=== PATIENT | male | born 1950 | race Caucasian/White ===

== ENCOUNTER 2018-11-30 16:41 | Emergency (ER) | payer BC, MEDICARE ==
[2018-11-30 17:07] VITALS: BP 156/93
--- NOTE | 2018-11-30 18:05 | EDM.PDOC ---
ED HPI GENERAL MEDICAL PROBLEM - General Chief Complaint: Abdominal Pain Stated Complaint: UPSET STOMACH,DIZZY Time Seen by Provider: 11/30/18 16:45 Source of Information: Reports: Patient History Limitations: Reports: No Limitations - History of Present Illness INITIAL COMMENTS - FREE TEXT/NARRATIVE: Patient time seen is inaccurate due to chart issues. Actual time see was 17:45. Zelalem Ayala is a 68 year old female who reports to the ED with concerns of dizziness and abdominal discomfort. 3 hours after snow blowing he was inside and kneeled down then felt dizzy. He then sat down for awhile due to the dizziness. He states that his vision felt blurry and he had a room spinning sensation. When walking in the ER he felt dizzy also. Then one hour after that he felt he had abdominal discomfort, bloating and increased belching. He denies eating anything out of the ordinary. He denies n/v/d and constipation. Last BM was about 1 hour ago and was normal. He did note that he has been using tea tree oil on his eyes and one side effect is dizziness. Further symptoms are denied at this time. - Related Data Allergies Allergy/AdvReac Type Severity Reaction Status Date / Time No Known Allergies Allergy Verified 11/30/18 17:13 Home Meds: Home Meds [place]-3 Fatty Acids [Fish Oil] 1,000 tab PO BID 08/16/14 [History] Cholecalciferol (Vitamin D3) [Vitamin D3] 2,000 unit PO DAILY 10/05/14 [History] Acetaminophen [Acetaminophen Extra Strength] 500 mg PO Q4HR PRN 10/09/15 [ History] Pantoprazole Sodium [Protonix] 40 mg PO BID 10/09/15 [History] Mv-Mn/FA/Vit K/Lycop/Lut/Zeaxa [Ocuvite Eye + Multi Tablet] 1 each PO DAILY [History] atorvaSTATin [Lipitor] 10 mg PO BEDTIME 10/11/15 [History] Past Medical History HEENT History: Reports: Impaired Vision, Macular Degeneration, Other (See Below) Other HEENT History: "ringing in the ears" Cardiovascular History: Reports: High Cholesterol Gastrointestinal History: Reports: Other (See Below) Other Gastrointestinal History: "bleeding ulcer" Hematologic History: Reports: Blood Transfusion(s) - Infectious Disease History Infectious Disease History: Reports: Chicken Pox, Measles, Mumps - Past Surgical History Head Surgeries/Procedures: Reports: None HEENT Surgical History: Reports: Tonsillectomy Cardiovascular Surgical History: Reports: None GI Surgical History: Reports: Colonoscopy, EGD, Hernia Repair/Other Dermatological Surgical History: Reports: None Social & Family History - Tobacco Use Smoking Status *Q: Former Smoker Used Tobacco, but Quit: Yes Month/Year Tobacco Last Used: 1968 - Caffeine Use Caffeine Use: Reports: Coffee - Recreational Drug Use Recreational Drug Use: No ED ROS GENERAL - Review of Systems Review Of Systems: See Below Constitutional: Denies: Fever, Chills, Malaise, Weakness Respiratory: Reports: No Symptoms Cardiovascular: Reports: No Symptoms Endocrine: Reports: No Symptoms GI/Abdominal: Reports: Distension. Denies: Black Stool, Bloody Stool, Constipation, Diarrhea, Decreased Appetite, Nausea, Stool Incontinence, Vomiting : Reports: No Symptoms Musculoskeletal: Reports: No Symptoms Skin: Reports: No Symptoms Neurological: Reports: Dizziness Psychiatric: Reports: No Symptoms ED EXAM, GI/ABD - Physical Exam Exam: See Below Exam Limited By: No Limitations General Appearance: Alert, WD/WN, No Apparent Distress Ears: Normal External Exam, Hearing Grossly Normal, Other (Cerumen impaction of right ear) Throat/Mouth: Normal Inspection, Normal Lips, Normal Teeth, Normal Gums, Normal Oropharynx Head: Atraumatic, Normocephalic Neck: Normal Inspection, Supple, Non-Tender Respiratory/Chest: No Respiratory Distress, Lungs Clear, Normal Breath Sounds, No Accessory Muscle Use Cardiovascular: Normal Peripheral Pulses, Regular Rate, Rhythm, No Edema GI/Abdominal Exam: Normal Bowel Sounds, Soft, Non-Tender, Other (diaplaced xyphoid process, chronic condition, 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) Extremities: Normal Inspection Neurological: Alert, Oriented, CN II-XII Intact, Normal Cognition, No Motor/ Sensory Deficits Psychiatric: Normal Affect, Normal Mood Skin Exam: Warm, Intact, Normal Color, No Rash Course - Vital Signs Last Recorded V/S: Last Vital Signs Temp 36.4 C 11/30/18 17:06 Pulse 72 11/30/18 17:06 Resp 16 11/30/18 17:06 BP 156/93 H 11/30/18 17:06 Pulse Ox 98 11/30/18 17:06 - Orders/Labs/Meds Labs: Laboratory Tests 11/30/18 11/30/18 Range/Units 18:11 18:11 WBC 6.2 (4.5-11.0) K/uL RBC 4.89 (4.30-5.90) M/uL Hgb 14.9 D (12.0-15.0) g/dL Hct 42.2 (40.0-54.0) % MCV 86 (80-98) fL MCH 31 (27-31) pg MCHC 35 (32-36) % Plt Count 165 (150-400) K/uL Neut % (Auto) 74 H (36-66) % Lymph % (Auto) 15 L (24-44) % [place] % (Auto) 9 H (2-6) % Eos % (Auto) 2 (2-4) % Baso % (Auto) 0 (0-1) % Sodium 137 L (140-148) mmol/L Potassium 3.9 (3.6-5.2) mmol/L Chloride 102 (100-108) mmol/L Carbon Dioxide 29 (21-32) mmol/L Anion Gap 9.9 (5.0-14.0) mmol/L BUN 17 D (7-18) mg/dL Creatinine 0.9 (0.8-1.3) mg/dL Est Cr Clr Drug Dosing 78.86 mL/min Estimated GFR (MDRD) > 60 (>60) Glucose 105 (74-106) mg/dL Calcium 9.0 D (8.5-10.1) mg/dL Departure - Departure Time of Disposition: 18:52 Disposition: Home, Self-Care 01 Condition: Fair Clinical Impression: Near syncope - Discharge Information *PRESCRIPTION DRUG MONITORING PROGRAM REVIEWED*: No *COPY OF PRESCRIPTION DRUG MONITORING REPORT IN PATIENT AMBER: No Instructions: Near-Syncope, [id number] Referrals: PCP,None [Primary Care Provider] - Forms: ED Department Discharge Additional Instructions: Use tea tree oil with caution Continue to monitor symptoms Advised to follow up with primary care provider or return to the ER is symptoms worsen or fail to improve
== END 2018-11-30 19:08 | disposition home or self-care (01) ==
LOC: JP.ED 16:41
DX: R55 Syncope and collapse (principal); E78.00 Pure hypercholesterolemia, unspecified; Z87.891 Personal history of nicotine dependence; Z79.899 Other long term (current) drug therapy
CPT/HCPCS: 36415; 80048; 85025; 99284

== ENCOUNTER 2021-01-11 17:23 | Inpatient (IN) | payer MEDICARE ==
[2021-01-11] MEDS ORDERED: Sodium Chloride 0.9% 10 ML Syringe FLUSH PRN (18:00)
--- NOTE | 2021-01-11 18:10 | EDM.PDOC ---
ED HPI GENERAL MEDICAL PROBLEM - General Chief Complaint: Gastrointestinal Problem Stated Complaint: STOMACH BLEEDING? Time Seen by Provider: 01/11/21 17:58 Source of Information: Reports: Patient History Limitations: Reports: No Limitations - History of Present Illness INITIAL COMMENTS - FREE TEXT/NARRATIVE: Zelalem is a 70-year-old male presenting to the ED for evaluation of possible upper GI bleeding. Patient was in his usual state of health until 3 days ago when he started develop some neck pain. He has been taking aspirin to treat the neck pain but today started developing nondescript upper abdominal pain and then this evening started to experience melena with black tarry stools x2. Patient has a history significant for an arterial upper GI bleed in 2013. The patient reports that today became a little bit more fatigued and was experiencing exertional dyspnea and tachycardia. This prompted him to come in for evaluation. - Related Data Allergies Allergy/AdvReac Type Severity Reaction Status Date / Time No Known Allergies Allergy Verified 01/11/21 17:44 Home Meds: Home Meds [place]-3 Fatty Acids [Fish Oil] 1,000 tab PO BID 08/16/14 [History] Cholecalciferol (Vitamin D3) [Vitamin D3] 2,000 unit PO DAILY 10/05/14 [History] atorvaSTATin [Lipitor] 5 mg PO BEDTIME 10/11/15 [History] Past Medical History HEENT History: Reports: Impaired Vision, Macular Degeneration, Other (See Below) Other HEENT History: "ringing in the ears" Cardiovascular History: Reports: High Cholesterol Gastrointestinal History: Reports: Other (See Below) Other Gastrointestinal History: "bleeding ulcer" Hematologic History: Reports: Blood Transfusion(s) - Infectious Disease History Infectious Disease History: Reports: Chicken Pox, Measles, Mumps - Past Surgical History Head Surgeries/Procedures: Reports: None HEENT Surgical History: Reports: Tonsillectomy Cardiovascular Surgical History: Reports: None GI Surgical History: Reports: Colonoscopy, EGD, Hernia Repair/Other Dermatological Surgical History: Reports: None Social & Family History - Tobacco Use Tobacco Use Status *Q: Never Tobacco User - Caffeine Use Caffeine Use: Reports: Coffee ED ROS GENERAL - Review of Systems Review Of Systems: See Below Constitutional: Reports: Fatigue HEENT: Reports: No Symptoms Respiratory: Reports: No Symptoms Cardiovascular: Reports: Dyspnea on Exertion, Palpitations Endocrine: Reports: Fatigue GI/Abdominal: Reports: Abdominal Pain (Dull upper abdominal pain), Melena : Reports: No Symptoms Musculoskeletal: Reports: No Symptoms Skin: Reports: No Symptoms Neurological: Reports: No Symptoms Psychiatric: Reports: No Symptoms Hematologic/Lymphatic: Reports: No Symptoms Immunologic: Reports: No Symptoms ED EXAM, GI/ABD - Physical Exam Exam: See Below Exam Limited By: No Limitations General Appearance: Alert, No Apparent Distress Eyes: Bilateral: EOMI Throat/Mouth: Normal Inspection, Normal Lips, Normal Teeth, Normal Gums, Normal Oropharynx, Normal Voice, No Airway Compromise Head: Atraumatic, Normocephalic Neck: Normal Inspection, Supple Respiratory/Chest: No Respiratory Distress, Lungs Clear, Normal Breath Sounds Cardiovascular: Normal Peripheral Pulses, Regular Rate, Rhythm, No Edema, No Murmur GI/Abdominal Exam: Normal Bowel Sounds, Soft, Non-Tender, No Distention, No Abnormal Bruit. No: Guarding, Rigid, Rebound Back Exam: Normal Inspection Extremities: Normal Inspection, Normal Range of Motion Neurological: Alert, Oriented, Normal Cognition, No Motor/Sensory Deficits Psychiatric: Normal Affect Skin Exam: Warm, Dry, Intact, Normal Color. No: Pallor Lymphatic: No Adenopathy Course - Vital Signs Last Recorded V/S: Last Vital Signs Temp 36.6 C 01/11/21 17:52 Pulse 100 01/11/21 17:52 Resp 16 01/11/21 17:52 BP 153/98 H 01/11/21 17:52 Pulse Ox 99 01/11/21 17:52 - Orders/Labs/Meds Orders: Active Orders 24 hr Category Date Time Status COMPREHENSIVE METABOLIC PN,CMP [CHEM] Stat Lab 01/11/21 18:00 Ordered COVID-19/FLU A+B/RSV [MOLEC] Stat Lab 01/11/21 18:05 Received INR,PT,PROTHROMBIN TIME [COAG] Stat Lab 01/11/21 18:15 Received PTT,PARTIAL THROMBOPLSTIN TIME [COAG] Stat Lab 01/11/21 18:15 Received TYPE AND SCREEN [BBK] Stat Lab 01/11/21 18:00 Ordered Pantoprazole [ProTONIX IV] 80 mg Med 01/11/21 18:00 Active Sodium Chloride 0.9% [Normal Saline] 100 ml IV .BOLUS Sodium Chloride 0.9% [Saline Flush] Med 01/11/21 18:00 Active 10 ml FLUSH ASDIRECTED PRN Isolation [COMM] Stat Oth 01/11/21 18:06 Ordered Saline Lock Insert [OM.PC] Routine Oth 01/11/21 18:00 Ordered Medication Orders Pantoprazole Sodium 80 mg/ (Sodium Chloride) 100 mls @ 200 mls/hr IV .BOLUS CHRISTINA Last Admin: 01/11/21 18:19 Dose: 200 mls/hr Documented by: SVETA Sodium Chloride (Sodium Chloride 0.9% 10 Ml Syringe) 10 ml FLUSH ASDIRECTED PRN PRN Reason: Keep Vein Open Last Admin: 01/11/21 18:20 Dose: 10 ml Documented by: SVETA Labs: Laboratory Tests 01/11/21 Range/Units 18:15 WBC 5.7 (4.5-11.0) K/uL RBC 4.16 L (4.30-5.90) M/uL Hgb 12.8 D (12.0-15.0) g/dL Hct 37.0 L (40.0-54.0) % MCV 89 (80-98) fL MCH 31 (27-31) pg MCHC 35 (32-36) % Plt Count 172 (150-400) K/uL Neut % (Auto) 53 (36-66) % Lymph % (Auto) 32 (24-44) % [place] % (Auto) 11 H (2-6) % Eos % (Auto) 4 (2-4) % Baso % (Auto) 0 (0-1) % Meds: Medications Generic Name Dose Route Start Last Admin Trade Name Freq PRN Reason Stop Dose Admin Pantoprazole Sodium 80 mg/ 100 mls @ 200 mls/hr 01/11/21 18:00 01/11/21 18:19 Sodium Chloride IV 200 mls/hr .BOLUS CHRISTINA Administration Sodium Chloride 10 ml 01/11/21 18:00 01/11/21 18:20 Sodium Chloride 0.9% 10 Ml Syringe FLUSH 10 ml ASDIRECTED PRN Administration Keep Vein Open - Re-Assessments/Exams Free Text/Narrative Re-Assessment/Exam: 01/11/21 18:30 I discussed the case with Dr. Persaud concerning this upper GI bleeding. The patient has devon melena on the glove on exam. His hemoglobin is 12.8 but his last hemoglobin in 2019 was 14.9. The patient has a previous history of an arterial GI bleed due to NSAIDs and with his devon melena it is a little worrisome that this may in fact be the recurrence of this. I discussed the case with Florencia Palmer concerning admitting the patient to the floor and because of the history of the arterial bleed she feels uncomfortable with this so I will talk to Dr. Yancey to admit the patient to the ICU. The plan is to do an endoscopy on the patient in the morning. The patient is already been typed and screened for blood. His coag studies are currently pending. We initiated Protonix 80 mg IV upon his arrival to the ED. Departure - Departure Time of Disposition: 18:46 Disposition: Admitted As Inpatient 64 Clinical Impression: Upper GI bleeding - Discharge Information Referrals: PCP,None [Primary Care Provider] - Forms: ED Department Discharge Sepsis Event Note (ED) - Evaluation Sepsis Screening Result: No Definite Risk - Focused Exam Vital Signs: Vital Signs Temp Pulse Resp BP Pulse Ox 01/11/21 17:52 36.6 C 100 16 153/98 H 99 01/11/21 17:38 36.6 C 100 16 153/98 H 99 - Problem List & Annotations (1) Upper GI bleeding SNOMED Code(s): 14196678 Code(s): K92.2 - GASTROINTESTINAL HEMORRHAGE, UNSPECIFIED Status: Acute Priority: High Current Visit: Yes - Problem List Review Problem List Initiated/Reviewed/Updated: Yes - My Orders Last 24 Hours: My Active Orders 01/11/21 18:00 COMPREHENSIVE METABOLIC PN,CMP [CHEM] Stat TYPE AND SCREEN [BBK] Stat Pantoprazole [ProTONIX IV] 80 mg Sodium Chloride 0.9% [Normal Saline] 100 ml IV .BOLUS Sodium Chloride 0.9% [Saline Flush] 10 ml FLUSH ASDIRECTED PRN Saline Lock Insert [OM.PC] Routine 01/11/21 18:05 COVID-19/FLU A+B/RSV [MOLEC] Stat 01/11/21 18:06 Isolation [COMM] Stat 01/11/21 18:15 INR,PT,PROTHROMBIN TIME [COAG] Stat PTT,PARTIAL THROMBOPLSTIN TIME [COAG] Stat - Assessment/Plan Last 24 Hours: My Active Orders 01/11/21 18:00 COMPREHENSIVE METABOLIC PN,CMP [CHEM] Stat TYPE AND SCREEN [BBK] Stat Pantoprazole [ProTONIX IV] 80 mg Sodium Chloride 0.9% [Normal Saline] 100 ml IV .BOLUS Sodium Chloride 0.9% [Saline Flush] 10 ml FLUSH ASDIRECTED PRN Saline Lock Insert [OM.PC] Routine 01/11/21 18:05 COVID-19/FLU A+B/RSV [MOLEC] Stat 01/11/21 18:06 Isolation [COMM] Stat 01/11/21 18:15 INR,PT,PROTHROMBIN TIME [COAG] Stat PTT,PARTIAL THROMBOPLSTIN TIME [COAG] Stat
[2021-01-11] MEDS: Pantoprazole 80 MG in Sodium Chloride 0.9% 100 ML IV SCH ×2 (18:19→20:51)
[2021-01-11 18:57] LABS: CORONAVIRUS COVID-19 NAA NEGATIVE (NEGATIVE)
[2021-01-11] MEDS ORDERED: Morphine 2 MG/ML SYRINGE IVPUSH PRN (19:26)
[2021-01-11] MEDS ORDERED: Acetaminophen 325 MG Tab PO PRN (19:26)
[2021-01-11] MEDS ORDERED: LORazepam 2 MG/ML SDV IV PRN (19:26)
[2021-01-11] MEDS ORDERED: Ondansetron 4 MG/2 ML SDV IV PRN (19:26)
[2021-01-11] MEDS ORDERED: Sodium Chloride 0.9% 1,000 ML IV SCH (19:30)
--- NOTE | 2021-01-11 19:45 | PCM.HP.2 ---
H&P History of Present Illness - General Date of Service: 01/11/21 Admit Problem/Dx: Admission Diagnosis/Problem Admission Diagnosis/Problem Gastric hemorrhage Source of Information: Patient, Family History Limitations: Reports: No Limitations - History of Present Illness Initial Comments - Free Text/Narative: 70-year-old male with a past medical history of hyperlipidemia on Lipitor and fish oil. He also takes vitamin D supplements as well as ocular vitamins. He has traditionally taken Tylenol as needed for pain. The patient has a significant history of gastrointestinal arterial hemorrhage in 2013. He presented with symptoms of GI bleeding and was noted to have arterial hemorrhage requiring laparotomy for repair. He required 6 units of blood and 2 units of FFP at that time. He believes he was taking baby aspirin at the time which may have prompted his bleed. He has had no similar symptoms until today. The patient reports having had some neck pain and soreness since September which he has been treating traditionally with Tylenol. Several days ago he began taking aspirin 650 mg twice daily to see if he could get ahead of the discomfort. The patient reports awakening early this morning feeling poorly with some upper GI discomfort. The patient had 2 bowel movements earlier in the day which reported as normal. At around 5 PM this evening the patient reported having a dark in stool. He also reported increased dyspnea on exertion and some palpitations prompting his evaluation in the ER. In the ER, the patient had a rectal exam which revealed melena. The patient has denied nausea or vomiting throughout the oh reports an acidic taste and feeling in his throat. He otherwise denies recent fever/chills. He denies chest pain, skin rash or urinary symptoms. In the ER, the patient received a bolus of Protonix. His case was discussed with Dr. Persaud of surgery who agreed to do an EGD in the morning. The hospitalist service was subsequently consulted for admission. Due to the patient's history of arterial GI bleeding, request was made for the patient to be admitted to the intensive care unit. Onset of Symptoms: Reports: Today Symptom Onset Date: 01/11/21 Duration of Symptoms: Reports: Hour(s): Location: Reports: Abdomen Quality: Reports: Ache Severity: Mild - Related Data Allergies/Adverse Reactions: Allergies Allergy/AdvReac Type Severity Reaction Status Date / Time No Known Allergies Allergy Verified 01/11/21 17:44 Home Medications: Home Meds [place]-3 Fatty Acids [Fish Oil] 1,000 tab PO BID 08/16/14 [History] Cholecalciferol (Vitamin D3) [Vitamin D3] 2,000 unit PO DAILY 10/05/14 [History] atorvaSTATin [Lipitor] 5 mg PO BEDTIME 10/11/15 [History] Past Medical History HEENT History: Reports: Impaired Vision, Macular Degeneration, Other (See Below) Other HEENT History: "ringing in the ears" Cardiovascular History: Reports: High Cholesterol Gastrointestinal History: Reports: Other (See Below) Other Gastrointestinal History: "bleeding ulcer" Hematologic History: Reports: Blood Transfusion(s) - Infectious Disease History Infectious Disease History: Reports: Chicken Pox, Measles, Mumps - Past Surgical History Head Surgeries/Procedures: Reports: None HEENT Surgical History: Reports: Tonsillectomy Cardiovascular Surgical History: Reports: None GI Surgical History: Reports: Colonoscopy, EGD, Hernia Repair/Other Dermatological Surgical History: Reports: None Social & Family History - Tobacco Use Tobacco Use Status *Q: Never Tobacco User - Caffeine Use Caffeine Use: Reports: Coffee H&P Review of Systems - Review of Systems: Review Of Systems: See Below General: Reports: Fatigue. Denies: Fever, Chills HEENT: Reports: No Symptoms Pulmonary: Denies: Wheezing, Cough Cardiovascular: Reports: Palpitations. Denies: Chest Pain, Syncope Gastrointestinal: Reports: Black Stool. Denies: Difficulty Swallowing, Hematemesis, Nausea, Vomiting Genitourinary: Reports: No Symptoms Musculoskeletal: Reports: Neck Pain Skin: Denies: Pallor, Rash Psychiatric: Reports: No Symptoms Neurological: Reports: No Symptoms Hematologic/Lymphatic: Reports: No Symptoms Immunologic: Reports: No Symptoms Exam - Exam Exam: See Below - Vital Signs Vital Signs: Last Vital Signs Temp 97.9 F 01/11/21 17:52 Pulse 100 01/11/21 17:52 Resp 16 01/11/21 17:52 BP 153/98 H 01/11/21 17:52 Pulse Ox 99 01/11/21 17:52 Weight: 170 lb - Exam General: Alert, Oriented HEENT: Conjunctiva Clear Neck: Supple, Trachea Midline Lungs: Clear to Auscultation Cardiovascular: Regular Rate, Regular Rhythm GI/Abdominal Exam: Normal Bowel Sounds, Soft, No Distention. No: Guarding, Rigid Rectal (Males) Exam: Black Stool Extremities: Normal Inspection Skin: Warm, Dry Neurological: Cranial Nerves Intact Neuro Extensive - Mental Status: Alert, Oriented x3, Normal Mood/Affect Psychiatric: Alert - Patient Data Lab Results Last 24 hrs: Laboratory Results - last 24 hr 01/11/21 01/11/21 01/11/21 Range/Units 18:05 18:15 18:15 WBC 5.7 (4.5-11.0) K/uL RBC 4.16 L (4.30-5.90) M/uL Hgb 12.8 D (12.0-15.0) g/dL Hct 37.0 L (40.0-54.0) % MCV 89 (80-98) fL MCH 31 (27-31) pg MCHC 35 (32-36) % Plt Count 172 (150-400) K/uL Neut % (Auto) 53 (36-66) % Lymph % (Auto) 32 (24-44) % [place] % (Auto) 11 H (2-6) % Eos % (Auto) 4 (2-4) % Baso % (Auto) 0 (0-1) % PT 11.4 (9.5-12.0) sec INR 1.05 (0.80-1.20) APTT 25.3 L (27.0-36.0) sec Sodium (140-148) mmol/L Potassium (3.6-5.2) mmol/L Chloride (100-108) mmol/L Carbon Dioxide (21-32) mmol/L Anion Gap (5.0-14.0) mmol/L BUN (7-18) mg/dL Creatinine (0.8-1.3) mg/dL Est Cr Clr Drug Dosing mL/min Estimated GFR (MDRD) (>60) BUN/Creatinine Ratio Glucose (74-106) mg/dL Calcium (8.5-10.1) mg/dL Total Bilirubin (0.2-1.0) mg/dL AST (15-37) U/L ALT (12-78) U/L Alkaline Phosphatase (46-116) U/L Total Protein (6.4-8.2) g/dL Albumin (3.4-5.0) g/dL Globulin (2.3-3.5) g/dL Albumin/Globulin Ratio (1.2-2.2) Influenza Type A RNA Negative (NEGATIVE) RSV RNA (INAAT) Negative (NEGATIVE) Influenza Type B RNA Negative (NEGATIVE) SARS-CoV-2 RNA (RENAY) Negative (NEGATIVE) Blood Type Gel Antibody Screen 01/11/21 01/11/21 Range/Units 18:15 18:15 WBC (4.5-11.0) K/uL RBC (4.30-5.90) M/uL Hgb (12.0-15.0) g/dL Hct (40.0-54.0) % MCV (80-98) fL MCH (27-31) pg MCHC (32-36) % Plt Count (150-400) K/uL Neut % (Auto) (36-66) % Lymph % (Auto) (24-44) % [place] % (Auto) (2-6) % Eos % (Auto) (2-4) % Baso % (Auto) (0-1) % PT (9.5-12.0) sec INR (0.80-1.20) APTT (27.0-36.0) sec Sodium 142 (140-148) mmol/L Potassium 3.8 (3.6-5.2) mmol/L Chloride 106 (100-108) mmol/L Carbon Dioxide 26 (21-32) mmol/L Anion Gap 13.8 (5.0-14.0) mmol/L BUN 43 H D (7-18) mg/dL Creatinine 0.9 (0.8-1.3) mg/dL Est Cr Clr Drug Dosing 76.60 mL/min Estimated GFR (MDRD) > 60 (>60) BUN/Creatinine Ratio Not Reportable Glucose 95 (74-106) mg/dL Calcium 8.6 (8.5-10.1) mg/dL Total Bilirubin 0.2 D (0.2-1.0) mg/dL AST 14 L (15-37) U/L ALT 21 (12-78) U/L Alkaline Phosphatase 55 (46-116) U/L Total Protein 5.8 L (6.4-8.2) g/dL Albumin 3.1 L (3.4-5.0) g/dL Globulin 2.7 (2.3-3.5) g/dL Albumin/Globulin Ratio 1.2 (1.2-2.2) Influenza Type A RNA (NEGATIVE) RSV RNA (INAAT) (NEGATIVE) Influenza Type B RNA (NEGATIVE) SARS-CoV-2 RNA (RENAY) (NEGATIVE) Blood Type A POSITIVE Gel Antibody Screen Negative Result Diagrams: 01/11/21 18:15 01/11/21 18:15 David Results Last 24 hrs: Microbiology 01/11/21 18:05 Stool Occult Blood (DAVID) - Final Stool / Feces Sepsis Event Note - Evaluation Sepsis Screening Result: No Definite Risk - Focused Exam Vital Signs: Vital Signs Temp Pulse Resp BP Pulse Ox 01/11/21 17:52 97.9 F 100 16 153/98 H 99 01/11/21 17:38 97.9 F 100 16 153/98 H 99 Problem List Initiated/Reviewed/Updated: Yes Orders Last 24hrs: Active Orders 24 hr Category Date Time Status Patient Status [ADT] Routine ADT 01/11/21 19:26 Ordered Bedrest Bedside Commode [RC] ASDIRECTED Care 01/11/21 19:26 Ordered Cardiac Monitoring [RC] .As Directed Care 01/11/21 19:28 Ordered EKG Documentation Completion [RC] ASDIRECTED Care 01/11/21 19:31 Ordered Intake and Output [RC] QSHIFT Care 01/11/21 19:28 Ordered Notify Provider Consults [RC] ASDIRECTED Care 01/11/21 19:33 Ordered Oxygen Therapy [RC] PRN Care 01/11/21 19:26 Ordered VTE/DVT Education [RC] Per Unit Routine Care 01/11/21 19:26 Ordered Vital Signs [RC] Q4H Care 01/11/21 19:26 Ordered Consult to Physician [CONS] Routine Cons 01/11/21 19:26 Ordered Clear Liquid Diet [DIET] Diet 01/11/21 Dinner Ordered Nothing per Oral After Midnight Diet [DIET] Diet 01/12/21 Breakfast Active BASIC METABOLIC PANEL,BMP [CHEM] AM Lab 01/12/21 05:11 Ordered HEMOGLOBIN [HEME] Q6H Lab 01/12/21 00:00 Ordered HEMOGLOBIN [HEME] Q6H Lab 01/12/21 06:00 Ordered HEMOGLOBIN [HEME] Q6H Lab 01/12/21 12:00 Ordered Acetaminophen [TylenoL] Med 01/11/21 19:26 Ordered 650 mg PO Q4H PRN Dextrose 5%-Lactated Ringers @ 100 MLS/HR(1,000ml) Med 01/11/21 19:45 Ordered Dextrose 5%-Lactated Ringers 1,000 ml IV ASDIRECTED LORazepam [Ativan] Med 01/11/21 19:26 Ordered 1 mg IV Q6H PRN Morphine Med 01/11/21 19:26 Ordered 2 mg IVPUSH Q2H PRN Ondansetron [Zofran] Med 01/11/21 19:26 Ordered 4 mg IV Q4H PRN Pantoprazole 80 MG in Sodium Chloride 0.9% @ 10 MLS/HR( Med 01/11/21 19:45 Ordered 100ml) Pantoprazole [ProTONIX IV] 80 mg Sodium Chloride 0.9% [Normal Saline] 100 ml IV Q10H Pantoprazole [ProTONIX IV] 80 mg Med 01/11/21 18:00 Active Sodium Chloride 0.9% [Normal Saline] 100 ml IV .BOLUS Sodium Chloride 0.9% [Saline Flush] Med 01/11/21 18:00 Active 10 ml FLUSH ASDIRECTED PRN Isolation [COMM] Stat Oth 01/11/21 18:06 Ordered Saline Lock Insert [OM.PC] Routine Oth 01/11/21 18:00 Ordered Sequential Compression Device [OM.PC] Per Unit Routine Oth 01/11/21 19:29 Ordered Resuscitation Status Routine Resus Stat 01/11/21 19:26 Ordered EKG 12 Lead [EK] Routine Ther 01/11/21 19:26 Ordered Medication Orders Acetaminophen (Acetaminophen 325 Mg Tab) 650 mg PO Q4H PRN PRN Reason: Pain (Mild 1-3)/fever Pantoprazole Sodium 80 mg/ (Sodium Chloride) 100 mls @ 200 mls/hr IV .BOLUS CHRISTINA Last Admin: 01/11/21 18:19 Dose: 200 mls/hr Documented by: SVETA Pantoprazole Sodium 80 mg/ (Sodium Chloride) 100 mls @ 10 mls/hr IV Q10H CHRISTINA Dextrose/Lactated Ringer's (Dextrose 5%-Lactated Ringers) 1,000 mls @ 100 mls/hr IV ASDIRECTED CHRISTINA Lorazepam (Lorazepam 2 Mg/Ml Sdv) 1 mg IV Q6H PRN PRN Reason: Nausea/Vomiting Morphine Sulfate (Morphine 2 Mg/Ml Syringe) 2 mg IVPUSH Q2H PRN PRN Reason: Pain (severe 7-10) Ondansetron HCl (Ondansetron 4 Mg/2 Ml Sdv) 4 mg IV Q4H PRN PRN Reason: Nausea/Vomiting Sodium Chloride (Sodium Chloride 0.9% 10 Ml Syringe) 10 ml FLUSH ASDIRECTED PRN PRN Reason: Keep Vein Open Last Admin: 01/11/21 18:20 Dose: 10 ml Documented by: SVETA Assessment/Plan Comment:: Assessment and Plan: UPPER GI BLEED 1-year-old male with a known history of bleeding artery and gastric ulceration presumptively secondary to aspirin use developed symptoms of upper GI bleeding after several days of aspirin use recently. Interestingly, the patient stopped taking PPI this past September per recommendations from his PCP. Patient's presentation, exam with melena, and labs with elevated BUN to creatinine ratio are strongly indicative of upper GI source. Patient's hemoglobin only slightly down from that a couple years ago but will need to be trended overnight. Will admit to ICU. Every 6 hour hemoglobin checks. Clear liquid diet for now. N.p.o. at midnight. Surgery consulted for EGD in a.m. As long as patient remains hemodynamically stable overnight. If this is not the case, would need emergent surgical evaluation overnight. And received Protonix bolus in the ER. Continue Protonix drip for now. Avoid NSAIDs. Tylenol ordered as needed for pain with morphine for moderate to severe pain. HYPERLIPIDEMIA We will continue patient's usual nightly Lipitor during his hospitalization DVT PROPHYLAXIS SCDs. Avoiding chemical prophylaxis with active bleed. CODE STATUS: Full DISPOSITION: Patient admitted as an inpatient. Projected hospitalization is at least 2 days with target disposition home. - Mortality Measure Prognosis:: Good
[2021-01-11] MEDS: Dextrose 5%-Lactated Ringers 1,000 ML IV SCH (20:22)
[2021-01-12] MEDS: Pantoprazole 80 MG in Sodium Chloride 0.9% 100 ML IV SCH ×4 (06:45→18:07)
[2021-01-12] MEDS ORDERED: fentaNYL 100 MCG/2 ML SDV ONE (07:09)
[2021-01-12] MEDS ORDERED: Propofol 200 MG/20 ML SDV ONE (07:09)
--- NOTE | 2021-01-12 10:09 | PCM.PN ---
- General Info Date of Service: 01/12/21 Admission Dx/Problem (Free Text): Admission Diagnosis/Problem Admission Diagnosis/Problem Gastric hemorrhage Subjective Update: Patient reported resolution of his abdominal discomfort from overnight. He did have 2 small melanic bowel movements but continues to deny nausea and vomiting. He was taken for EGD this morning which showed somewhat mobile appearing blood clot in the stomach in the presumed region of his prior gastric arterial bleed. Hemoglobin has been slightly downtrending. Functional Status: Reports: Pain Controlled - Review of Systems General: Denies: Fever, Night Sweats HEENT: Reports: No Symptoms Pulmonary: Reports: No Symptoms Cardiovascular: Reports: No Symptoms Gastrointestinal: Denies: Abdominal Pain, Nausea, Vomiting Genitourinary: Reports: No Symptoms Musculoskeletal: Reports: No Symptoms Skin: Reports: No Symptoms Neurological: Reports: No Symptoms Psychiatric: Reports: No Symptoms - Patient Data Vitals - Most Recent: Last Vital Signs Temp 95.7 F L 01/12/21 08:10 Pulse 74 01/12/21 09:00 Resp 70 H 01/12/21 09:00 BP 123/75 01/12/21 09:00 Pulse Ox 99 01/12/21 09:00 Weight - Most Recent: 180 lb 9.6 oz I&O - Last 24 Hours: Intake & Output 01/11/21 01/12/21 01/12/21 22:59 06:59 14:59 Intake Total 200 Output Total 500 800 Balance -500 -600 Lab Results Last 24 Hours: Laboratory Results - last 24 hr 01/11/21 01/11/21 01/11/21 Range/Units 18:05 18:15 18:15 WBC 5.7 (4.5-11.0) K/uL RBC 4.16 L (4.30-5.90) M/uL Hgb 12.8 D (12.0-15.0) g/dL Hct 37.0 L (40.0-54.0) % MCV 89 (80-98) fL MCH 31 (27-31) pg MCHC 35 (32-36) % Plt Count 172 (150-400) K/uL Neut % (Auto) 53 (36-66) % Lymph % (Auto) 32 (24-44) % [place] % (Auto) 11 H (2-6) % Eos % (Auto) 4 (2-4) % Baso % (Auto) 0 (0-1) % PT 11.4 (9.5-12.0) sec INR 1.05 (0.80-1.20) APTT 25.3 L (27.0-36.0) sec Sodium (140-148) mmol/L Potassium (3.6-5.2) mmol/L Chloride (100-108) mmol/L Carbon Dioxide (21-32) mmol/L Anion Gap (5.0-14.0) mmol/L BUN (7-18) mg/dL Creatinine (0.8-1.3) mg/dL Est Cr Clr Drug Dosing mL/min Estimated GFR (MDRD) (>60) BUN/Creatinine Ratio Glucose (74-106) mg/dL Calcium (8.5-10.1) mg/dL Total Bilirubin (0.2-1.0) mg/dL AST (15-37) U/L ALT (12-78) U/L Alkaline Phosphatase (46-116) U/L Total Protein (6.4-8.2) g/dL Albumin (3.4-5.0) g/dL Globulin (2.3-3.5) g/dL Albumin/Globulin Ratio (1.2-2.2) Influenza Type A RNA Negative (NEGATIVE) RSV RNA (INAAT) Negative (NEGATIVE) Influenza Type B RNA Negative (NEGATIVE) SARS-CoV-2 RNA (RENAY) Negative (NEGATIVE) Blood Type Gel Antibody Screen 01/11/21 01/11/21 01/12/21 Range/Units 18:15 18:15 00:10 WBC (4.5-11.0) K/uL RBC (4.30-5.90) M/uL Hgb 11.0 L (12.0-15.0) g/dL Hct (40.0-54.0) % MCV (80-98) fL MCH (27-31) pg MCHC (32-36) % Plt Count (150-400) K/uL Neut % (Auto) (36-66) % Lymph % (Auto) (24-44) % [place] % (Auto) (2-6) % Eos % (Auto) (2-4) % Baso % (Auto) (0-1) % PT (9.5-12.0) sec INR (0.80-1.20) APTT (27.0-36.0) sec Sodium 142 (140-148) mmol/L Potassium 3.8 (3.6-5.2) mmol/L Chloride 106 (100-108) mmol/L Carbon Dioxide 26 (21-32) mmol/L Anion Gap 13.8 (5.0-14.0) mmol/L BUN 43 H D (7-18) mg/dL Creatinine 0.9 (0.8-1.3) mg/dL Est Cr Clr Drug Dosing 76.60 mL/min Estimated GFR (MDRD) > 60 (>60) BUN/Creatinine Ratio Not Reportable Glucose 95 (74-106) mg/dL Calcium 8.6 (8.5-10.1) mg/dL Total Bilirubin 0.2 D (0.2-1.0) mg/dL AST 14 L (15-37) U/L ALT 21 (12-78) U/L Alkaline Phosphatase 55 (46-116) U/L Total Protein 5.8 L (6.4-8.2) g/dL Albumin 3.1 L (3.4-5.0) g/dL Globulin 2.7 (2.3-3.5) g/dL Albumin/Globulin Ratio 1.2 (1.2-2.2) Influenza Type A RNA (NEGATIVE) RSV RNA (INAAT) (NEGATIVE) Influenza Type B RNA (NEGATIVE) SARS-CoV-2 RNA (RENAY) (NEGATIVE) Blood Type A POSITIVE Gel Antibody Screen Negative 01/12/21 01/12/21 Range/Units 05:55 05:55 WBC (4.5-11.0) K/uL RBC (4.30-5.90) M/uL Hgb 10.9 L (12.0-15.0) g/dL Hct (40.0-54.0) % MCV (80-98) fL MCH (27-31) pg MCHC (32-36) % Plt Count (150-400) K/uL Neut % (Auto) (36-66) % Lymph % (Auto) (24-44) % [place] % (Auto) (2-6) % Eos % (Auto) (2-4) % Baso % (Auto) (0-1) % PT (9.5-12.0) sec INR (0.80-1.20) APTT (27.0-36.0) sec Sodium 146 (140-148) mmol/L Potassium 3.9 (3.6-5.2) mmol/L Chloride 111 H (100-108) mmol/L Carbon Dioxide 27 (21-32) mmol/L Anion Gap 11.9 (5.0-14.0) mmol/L BUN 37 H (7-18) mg/dL Creatinine 1.0 (0.8-1.3) mg/dL Est Cr Clr Drug Dosing 68.94 mL/min Estimated GFR (MDRD) > 60 (>60) BUN/Creatinine Ratio Glucose 87 (74-106) mg/dL Calcium 8.1 L (8.5-10.1) mg/dL Total Bilirubin (0.2-1.0) mg/dL AST (15-37) U/L ALT (12-78) U/L Alkaline Phosphatase (46-116) U/L Total Protein (6.4-8.2) g/dL Albumin (3.4-5.0) g/dL Globulin (2.3-3.5) g/dL Albumin/Globulin Ratio (1.2-2.2) Influenza Type A RNA (NEGATIVE) RSV RNA (INAAT) (NEGATIVE) Influenza Type B RNA (NEGATIVE) SARS-CoV-2 RNA (RENAY) (NEGATIVE) Blood Type Gel Antibody Screen David Results Last 24 Hours: Microbiology 01/11/21 18:05 Stool Occult Blood (DAVID) - Final Stool / Feces Med Orders - Current: Current Medications Acetaminophen (Acetaminophen 325 Mg Tab) 650 mg PO Q4H PRN PRN Reason: Pain (Mild 1-3)/fever Atorvastatin Calcium (Atorvastatin 10 Mg Tab) 5 mg PO BEDTIME CHRISTINA Dextrose/Lactated Ringer's (Dextrose 5%-Lactated Ringers) 1,000 mls @ 75 mls/hr IV ASDIRECTED [facility] Last Admin: 01/11/21 20:22 Dose: 100 mls/hr Documented by: Pantoprazole Sodium 80 mg/ (Sodium Chloride) 100 mls @ 10 mls/hr IV Q10H CHRISTINA Last Admin: 01/12/21 08:40 Dose: 10 mls/hr Documented by: Lorazepam (Lorazepam 2 Mg/Ml Sdv) 1 mg IV Q6H PRN PRN Reason: Nausea/Vomiting Morphine Sulfate (Morphine 2 Mg/Ml Syringe) 2 mg IVPUSH Q2H PRN PRN Reason: Pain (severe 7-10) Ondansetron HCl (Ondansetron 4 Mg/2 Ml Sdv) 4 mg IV Q4H PRN PRN Reason: Nausea/Vomiting Sodium Chloride (Sodium Chloride 0.9% 10 Ml Syringe) 10 ml FLUSH ASDIRECTED PRN PRN Reason: Keep Vein Open Last Admin: 01/11/21 18:20 Dose: 10 ml Documented by: Discontinued Medications Fentanyl (Fentanyl 100 Mcg/2 Ml Sdv) Confirm Administered Dose 100 mcg .ROUTE .HALFPOPS-MED ONE Stop: 01/12/21 07:10 Pantoprazole Sodium 80 mg/ (Sodium Chloride) 100 mls @ 200 mls/hr IV .BOLUS CHRISTINA Last Admin: 01/11/21 18:19 Dose: 200 mls/hr Documented by: Sodium Chloride (Normal Saline) 1,000 mls @ 125 mls/hr IV ASDIRECTED CHRISTINA Pantoprazole Sodium 80 mg/ (Sodium Chloride) 100 mls @ 10 mls/hr IV Q10H [facility]STINA Last Admin: 01/12/21 06:50 Dose: 10 mls/hr Documented by: Propofol (Propofol 200 Mg/20 Ml Sdv) Confirm Administered Dose 200 mg .ROUTE .HALFPOPS-MED ONE Stop: 01/12/21 07:10 - Exam Quality Assessment: No: Supplemental Oxygen, Skin Breakdown General: Alert, Oriented HEENT: No: Scleral Icterus Neck: Supple, Trachea Midline Lungs: Clear to Auscultation Cardiovascular: Regular Rate, Regular Rhythm GI/Abdominal Exam: Soft, Non-Tender Extremities: Normal Inspection Neurological: No New Focal Deficit Psy/Mental Status: Alert, Normal Affect, Normal Mood - Patient Data Lab Results Last 24 hrs: Laboratory Results - last 24 hr 01/11/21 01/11/21 01/11/21 Range/Units 18:05 18:15 18:15 WBC 5.7 (4.5-11.0) K/uL RBC 4.16 L (4.30-5.90) M/uL Hgb 12.8 D (12.0-15.0) g/dL Hct 37.0 L (40.0-54.0) % MCV 89 (80-98) fL MCH 31 (27-31) pg MCHC 35 (32-36) % Plt Count 172 (150-400) K/uL Neut % (Auto) 53 (36-66) % Lymph % (Auto) 32 (24-44) % [place] % (Auto) 11 H (2-6) % Eos % (Auto) 4 (2-4) % Baso % (Auto) 0 (0-1) % PT 11.4 (9.5-12.0) sec INR 1.05 (0.80-1.20) APTT 25.3 L (27.0-36.0) sec Sodium (140-148) mmol/L Potassium (3.6-5.2) mmol/L Chloride (100-108) mmol/L Carbon Dioxide (21-32) mmol/L Anion Gap (5.0-14.0) mmol/L BUN (7-18) mg/dL Creatinine (0.8-1.3) mg/dL Est Cr Clr Drug Dosing mL/min Estimated GFR (MDRD) (>60) BUN/Creatinine Ratio Glucose (74-106) mg/dL Calcium (8.5-10.1) mg/dL Total Bilirubin (0.2-1.0) mg/dL AST (15-37) U/L ALT (12-78) U/L Alkaline Phosphatase (46-116) U/L Total Protein (6.4-8.2) g/dL Albumin (3.4-5.0) g/dL Globulin (2.3-3.5) g/dL Albumin/Globulin Ratio (1.2-2.2) Influenza Type A RNA Negative (NEGATIVE) RSV RNA (INAAT) Negative (NEGATIVE) Influenza Type B RNA Negative (NEGATIVE) SARS-CoV-2 RNA (RENAY) Negative (NEGATIVE) Blood Type Gel Antibody Screen 01/11/21 01/11/21 01/12/21 Range/Units 18:15 18:15 00:10 WBC (4.5-11.0) K/uL RBC (4.30-5.90) M/uL Hgb 11.0 L (12.0-15.0) g/dL Hct (40.0-54.0) % MCV (80-98) fL MCH (27-31) pg MCHC (32-36) % Plt Count (150-400) K/uL Neut % (Auto) (36-66) % Lymph % (Auto) (24-44) % [place] % (Auto) (2-6) % Eos % (Auto) (2-4) % Baso % (Auto) (0-1) % PT (9.5-12.0) sec INR (0.80-1.20) APTT (27.0-36.0) sec Sodium 142 (140-148) mmol/L Potassium 3.8 (3.6-5.2) mmol/L Chloride 106 (100-108) mmol/L Carbon Dioxide 26 (21-32) mmol/L Anion Gap 13.8 (5.0-14.0) mmol/L BUN 43 H D (7-18) mg/dL Creatinine 0.9 (0.8-1.3) mg/dL Est Cr Clr Drug Dosing 76.60 mL/min Estimated GFR (MDRD) > 60 (>60) BUN/Creatinine Ratio Not Reportable Glucose 95 (74-106) mg/dL Calcium 8.6 (8.5-10.1) mg/dL Total Bilirubin 0.2 D (0.2-1.0) mg/dL AST 14 L (15-37) U/L ALT 21 (12-78) U/L Alkaline Phosphatase 55 (46-116) U/L Total Protein 5.8 L (6.4-8.2) g/dL Albumin 3.1 L (3.4-5.0) g/dL Globulin 2.7 (2.3-3.5) g/dL Albumin/Globulin Ratio 1.2 (1.2-2.2) Influenza Type A RNA (NEGATIVE) RSV RNA (INAAT) (NEGATIVE) Influenza Type B RNA (NEGATIVE) SARS-CoV-2 RNA (RENAY) (NEGATIVE) Blood Type A POSITIVE Gel Antibody Screen Negative 01/12/21 01/12/21 Range/Units 05:55 05:55 WBC (4.5-11.0) K/uL RBC (4.30-5.90) M/uL Hgb 10.9 L (12.0-15.0) g/dL Hct (40.0-54.0) % MCV (80-98) fL MCH (27-31) pg MCHC (32-36) % Plt Count (150-400) K/uL Neut % (Auto) (36-66) % Lymph % (Auto) (24-44) % [place] % (Auto) (2-6) % Eos % (Auto) (2-4) % Baso % (Auto) (0-1) % PT (9.5-12.0) sec INR (0.80-1.20) APTT (27.0-36.0) sec Sodium 146 (140-148) mmol/L Potassium 3.9 (3.6-5.2) mmol/L Chloride 111 H (100-108) mmol/L Carbon Dioxide 27 (21-32) mmol/L Anion Gap 11.9 (5.0-14.0) mmol/L BUN 37 H (7-18) mg/dL Creatinine 1.0 (0.8-1.3) mg/dL Est Cr Clr Drug Dosing 68.94 mL/min Estimated GFR (MDRD) > 60 (>60) BUN/Creatinine Ratio Glucose 87 (74-106) mg/dL Calcium 8.1 L (8.5-10.1) mg/dL Total Bilirubin (0.2-1.0) mg/dL AST (15-37) U/L ALT (12-78) U/L Alkaline Phosphatase (46-116) U/L Total Protein (6.4-8.2) g/dL Albumin (3.4-5.0) g/dL Globulin (2.3-3.5) g/dL Albumin/Globulin Ratio (1.2-2.2) Influenza Type A RNA (NEGATIVE) RSV RNA (INAAT) (NEGATIVE) Influenza Type B RNA (NEGATIVE) SARS-CoV-2 RNA (RENAY) (NEGATIVE) Blood Type Gel Antibody Screen Result Diagrams: 01/12/21 05:55 01/12/21 05:55 David Results Last 24 hrs: Microbiology 01/11/21 18:05 Stool Occult Blood (DAVID) - Final Stool / Feces Sepsis Event Note - Evaluation Sepsis Screening Result: No Definite Risk - Focused Exam Vital Signs: Vital Signs Temp Pulse Resp BP BP Pulse Ox 01/12/21 09:00 74 70 H 123/75 99 01/12/21 08:10 95.7 F L 66 16 101/58 L 100 01/12/21 08:05 71 14 92/45 L 100 01/12/21 08:00 97.6 F 78 11 L 121/72 98 01/12/21 07:55 65 12 96/44 L 99 01/12/21 07:50 95.7 F L 65 95 H 91/43 L 4 L 01/12/21 06:00 65 10 L 99/59 L 97 01/12/21 05:00 97.9 F 58 L 15 90/53 L 99 01/12/21 04:00 63 17 95/59 L 95 01/12/21 03:00 58 L 15 96/58 L 96 01/12/21 02:00 64 10 L 90/63 97 01/12/21 01:00 60 15 94/48 L 97 01/12/21 00:00 67 16 104/67 99 01/11/21 23:00 67 15 94/60 97 - Problem List Review Problem List Initiated/Reviewed/Updated: Yes - My Orders Last 24 Hours: My Active Orders 01/11/21 Dinner Clear Liquid Diet [DIET] 01/11/21 19:26 Patient Status [ADT] Routine Bedrest Bedside Commode [RC] ASDIRECTED Oxygen Therapy [RC] PRN VTE/DVT Education [RC] Per Unit Routine Vital Signs [RC] Q1H Consult to Physician [CONS] Routine Acetaminophen [TylenoL] 650 mg PO Q4H PRN LORazepam [Ativan] 1 mg IV Q6H PRN Morphine 2 mg IVPUSH Q2H PRN Ondansetron [Zofran] 4 mg IV Q4H PRN Resuscitation Status Routine EKG 12 Lead [EK] Routine 01/11/21 19:28 Cardiac Monitoring [RC] .As Directed Intake and Output [RC] QSHIFT 01/11/21 19:29 Sequential Compression Device [OM.PC] Per Unit Routine 01/11/21 19:33 Notify Provider Consults [RC] ASDIRECTED 01/11/21 19:45 Dextrose 5%-Lactated Ringers 1,000 ml IV ASDIRECTED 01/12/21 08:30 Pantoprazole [ProTONIX IV] 80 mg Sodium Chloride 0.9% [Normal Saline] 100 ml IV Q10H 01/12/21 12:00 HEMOGLOBIN [HEME] Q6H 01/12/21 18:00 HEMOGLOBIN [HEME] Q12H 01/12/21 21:00 atorvaSTATin [Lipitor] 5 mg PO BEDTIME 01/13/21 05:11 BASIC METABOLIC PANEL,BMP [CHEM] Routine 01/13/21 06:00 HEMOGLOBIN [HEME] Q12H - Plan Plan:: Assessment and Plan: UPPER GI BLEED Improved symptoms overnight though EGD this morning concerning for blood clot at risk for mobilization. We will maintain Protonix drip today with sips of clears as tolerated. We will continue close monitoring in ICU given relatively high risk lesion noted on EGD. Continue to trend hemoglobin with close hemodynamic monitoring. If patient maintains hemodynamic and hemoglobin stability today, would consider slowly advancing diet over the next 24 to 48 hours. Patient will need to remain on PPI therapy for at least an additional month following hospitalization. Consider indefinite therapy. Gastrin level was requested by surgery. HYPERLIPIDEMIA Continue patient's usual nightly Lipitor during his hospitalization DVT PROPHYLAXIS SCDs. Avoiding chemical prophylaxis with active bleed. CODE STATUS: Full DISPOSITION: Continue close monitoring and care in intensive care unit today. Presume at least another 1 to 2-day hospitalization with target disposition home.
[2021-01-12] MEDS: Dextrose 5%-Lactated Ringers 1,000 ML IV SCH (18:09)
[2021-01-12] MEDS: atorvaSTATin 10 MG Tab PO SCH (20:31)
[2021-01-13] MEDS: Pantoprazole 80 MG in Sodium Chloride 0.9% 100 ML IV SCH (04:45)
[2021-01-13] MEDS: Dextrose 5%-Lactated Ringers 1,000 ML IV SCH (07:25)
[2021-01-13] MEDS: Sucralfate 1 GM Tab PO SCH ×4 (09:12→20:11)
--- NOTE | 2021-01-13 10:04 | PCM.PN ---
- General Info Date of Service: 01/13/21 Admission Dx/Problem (Free Text): Admission Diagnosis/Problem Admission Diagnosis/Problem Gastric hemorrhage Subjective Update: No significant issues reported overnight. The patient reportedly had several formed black stools last evening. He continues to deny abdominal pain. He denies nausea or vomiting and actually reports hunger and hoping to advance his diet. Case was discussed with Dr. Persaud. Carafate added to the patient's Protonix. He was advanced to a full liquid diet. Functional Status: Reports: Pain Controlled, Tolerating Diet, Ambulating - Review of Systems General: Denies: Fever, Fatigue, Malaise HEENT: Reports: No Symptoms Pulmonary: Reports: No Symptoms Cardiovascular: Reports: No Symptoms Gastrointestinal: Denies: Abdominal Pain, Hematochezia, Nausea, Vomiting Genitourinary: Reports: No Symptoms Musculoskeletal: Reports: No Symptoms Skin: Reports: No Symptoms Neurological: Reports: No Symptoms Psychiatric: Reports: No Symptoms - Patient Data Vitals - Most Recent: Last Vital Signs Temp 97.6 F 01/13/21 09:00 Pulse 79 01/13/21 09:55 Resp 10 L 01/13/21 09:00 BP 125/63 01/13/21 09:00 Pulse Ox 97 01/13/21 09:00 Weight - Most Recent: 180 lb 9.6 oz I&O - Last 24 Hours: Intake & Output 01/12/21 01/13/21 01/13/21 22:59 06:59 14:59 Intake Total 2548 1444 800 Output Total 1275 900 Balance 2548 169 -100 Lab Results Last 24 Hours: Laboratory Results - last 24 hr 01/12/21 01/12/21 01/13/21 Range/Units 12:00 18:03 04:10 Hgb 10.0 L 10.1 L (12.0-15.0) g/dL Sodium 147 (140-148) mmol/L Potassium 4.1 (3.6-5.2) mmol/L Chloride 112 H (100-108) mmol/L Carbon Dioxide 27 (21-32) mmol/L Anion Gap 12.1 (5.0-14.0) mmol/L BUN 20 H (7-18) mg/dL Creatinine 0.9 (0.8-1.3) mg/dL Est Cr Clr Drug Dosing 76.60 mL/min Estimated GFR (MDRD) > 60 (>60) Glucose 91 (74-106) mg/dL Calcium 8.1 L (8.5-10.1) mg/dL 01/13/21 Range/Units 04:10 Hgb 9.4 L (12.0-15.0) g/dL Sodium (140-148) mmol/L Potassium (3.6-5.2) mmol/L Chloride (100-108) mmol/L Carbon Dioxide (21-32) mmol/L Anion Gap (5.0-14.0) mmol/L BUN (7-18) mg/dL Creatinine (0.8-1.3) mg/dL Est Cr Clr Drug Dosing mL/min Estimated GFR (MDRD) (>60) Glucose (74-106) mg/dL Calcium (8.5-10.1) mg/dL David Results Last 24 Hours: Microbiology 01/12/21 07:27 CLOtest - Final Stomach NEGATIVE CLOTEST REFERENCE RANGE: NEGATIVE Med Orders - Current: Current Medications Acetaminophen (Acetaminophen 325 Mg Tab) 650 mg PO Q4H PRN PRN Reason: Pain (Mild 1-3)/fever Atorvastatin Calcium (Atorvastatin 10 Mg Tab) 5 mg PO BEDTIME [facility] Last Admin: 01/12/21 20:31 Dose: 5 mg Documented by: Lorazepam (Lorazepam 2 Mg/Ml Sdv) 1 mg IV Q6H PRN PRN Reason: Nausea/Vomiting Morphine Sulfate (Morphine 2 Mg/Ml Syringe) 2 mg IVPUSH Q2H PRN PRN Reason: Pain (severe 7-10) Ondansetron HCl (Ondansetron 4 Mg/2 Ml Sdv) 4 mg IV Q4H PRN PRN Reason: Nausea/Vomiting Pantoprazole Sodium (Pantoprazole 40 Mg Vial) 40 mg IVPUSH Q12H [facility] Sodium Chloride (Sodium Chloride 0.9% 10 Ml Syringe) 10 ml FLUSH ASDIRECTED PRN PRN Reason: Keep Vein Open Last Admin: 01/11/21 18:20 Dose: 10 ml Documented by: Sucralfate (Sucralfate 1 Gm Tab) 1 gm PO QIDACANDBED [facility] Last Admin: 01/13/21 09:12 Dose: 1 gm Documented by: Discontinued Medications Fentanyl (Fentanyl 100 Mcg/2 Ml Sdv) Confirm Administered Dose 100 mcg .ROUTE .STK-MED ONE Stop: 01/12/21 07:10 Pantoprazole Sodium 80 mg/ (Sodium Chloride) 100 mls @ 200 mls/hr IV .BOLUS CHRISTINA Last Admin: 01/11/21 18:19 Dose: 200 mls/hr Documented by: Sodium Chloride (Normal Saline) 1,000 mls @ 125 mls/hr IV ASDIRECTED CHRISTINA Pantoprazole Sodium 80 mg/ (Sodium Chloride) 100 mls @ 10 mls/hr IV Q10H CHRISTINA Last Admin: 01/12/21 06:50 Dose: 10 mls/hr Documented by: Dextrose/Lactated Ringer's (Dextrose 5%-Lactated Ringers) 1,000 mls @ 75 mls/hr IV ASDIRECTED CHRISTINA Last Admin: 01/13/21 07:25 Dose: 75 mls/hr Documented by: Pantoprazole Sodium 80 mg/ (Sodium Chloride) 100 mls @ 10 mls/hr IV Q10H CHRISTINA Last Admin: 01/13/21 04:45 Dose: 10 mls/hr Documented by: Propofol (Propofol 200 Mg/20 Ml Sdv) Confirm Administered Dose 200 mg .ROUTE .S TK-MED ONE Stop: 01/12/21 07:10 - Exam General: Alert, Oriented, Cooperative HEENT: No: Scleral Icterus Neck: Supple, Trachea Midline Lungs: Clear to Auscultation Cardiovascular: Regular Rate, Regular Rhythm, No Murmurs GI/Abdominal Exam: Normal Bowel Sounds, Soft, Non-Tender, No Distention Extremities: Normal Inspection Neurological: No New Focal Deficit Psy/Mental Status: Normal Affect, Normal Mood - Patient Data Lab Results Last 24 hrs: Laboratory Results - last 24 hr 01/12/21 01/12/21 01/13/21 Range/Units 12:00 18:03 04:10 Hgb 10.0 L 10.1 L (12.0-15.0) g/dL Sodium 147 (140-148) mmol/L Potassium 4.1 (3.6-5.2) mmol/L Chloride 112 H (100-108) mmol/L Carbon Dioxide 27 (21-32) mmol/L Anion Gap 12.1 (5.0-14.0) mmol/L BUN 20 H (7-18) mg/dL Creatinine 0.9 (0.8-1.3) mg/dL Est Cr Clr Drug Dosing 76.60 mL/min Estimated GFR (MDRD) > 60 (>60) Glucose 91 (74-106) mg/dL Calcium 8.1 L (8.5-10.1) mg/dL 01/13/21 Range/Units 04:10 Hgb 9.4 L (12.0-15.0) g/dL Sodium (140-148) mmol/L Potassium (3.6-5.2) mmol/L Chloride (100-108) mmol/L Carbon Dioxide (21-32) mmol/L Anion Gap (5.0-14.0) mmol/L BUN (7-18) mg/dL Creatinine (0.8-1.3) mg/dL Est Cr Clr Drug Dosing mL/min Estimated GFR (MDRD) (>60) Glucose (74-106) mg/dL Calcium (8.5-10.1) mg/dL Result Diagrams: 01/13/21 04:10 01/13/21 04:10 David Results Last 24 hrs: Microbiology 01/12/21 07:27 CLOtest - Final Stomach NEGATIVE CLOTEST REFERENCE RANGE: NEGATIVE Sepsis Event Note - Evaluation Sepsis Screening Result: No Definite Risk - Focused Exam Vital Signs: Vital Signs Temp Pulse Resp BP Pulse Ox 01/13/21 09:55 79 01/13/21 09:00 97.6 F 80 10 L 125/63 97 01/13/21 07:00 97.8 F 71 12 126/70 99 01/13/21 06:00 61 12 108/61 97 01/13/21 05:00 70 14 113/62 96 01/13/21 04:00 61 13 99/59 L 97 01/13/21 03:00 63 13 101/59 L 96 01/13/21 02:00 97.9 F 67 13 113/62 98 01/13/21 01:00 58 L 14 101/56 L 97 01/13/21 00:00 64 15 104/56 L 94 L - Problem List Review Problem List Initiated/Reviewed/Updated: Yes - My Orders Last 24 Hours: My Active Orders 01/12/21 21:00 atorvaSTATin [Lipitor] 5 mg PO BEDTIME 01/13/21 10:15 Pantoprazole [ProTONIX IV] 40 mg IVPUSH Q12H - Plan Plan:: Assessment and Plan: UPPER GI BLEED EGD assessment yesterday morning showed a gel-like clot that was maintained to minimize risk for excessive bleeding. We will continue IV Protonix though have de-escalated drip to BID PPI. Carafate also added per surgery. Patient's diet advanced to full liquid. Maintenance IV fluids discontinued. Patient will need to remain on PPI therapy lifelong with twice daily therapy for at least the next 30 days. ANEMIA SECONDARY TO GI HEMORRHAGE Hemoglobin slowly downtrending though no indication for transfusion. Patient otherwise feels well. We will continue to trend hemoglobin at least over the next day or so. HYPERLIPIDEMIA Continue patient's usual nightly Lipitor DVT PROPHYLAXIS SCDs. Avoiding chemical prophylaxis with active bleed. CODE STATUS: Full DISPOSITION: Reasonable to transition patient to general medical floor status today. Presume another 1 to 2-day hospitalization with target disposition home.
[2021-01-13] MEDS: Pantoprazole 40 MG Vial IVPUSH SCH ×2 (10:41→22:15)
[2021-01-13] MEDS: atorvaSTATin 10 MG Tab PO SCH (20:11)
[2021-01-14] MEDS: Sucralfate 1 GM Tab PO SCH ×2 (06:24→10:53)
[2021-01-14] MEDS: Pantoprazole 40 MG Vial IVPUSH SCH (10:06)
[2021-01-14 10:55] VITALS: BP 112/73; PULSE 66
--- NOTE | 2021-01-14 14:25 | PCM.SN.2 ---
- Free Text/Narrative Note: START OF DOCTOR EMAMIS DISCHARGE SUMMARY Date of Admission: January 11, 2021 Date of Discharge: 2:23 PM on January 14, 2021 Primary Diagnosis: Anemia secondary to gastrointestinal bleed for which patient status post EGD on January 12, 2021 with general surgery Secondary Diagnosis: Hyperlipidemia GERD Depression Consultations: General surgery who performed EGD on January 12, 2021 Disposition: The patient will be advised to follow-up with surgery as directed The patient require recheck of hemoglobin with CBC with differential 5 days post discharge for diagnosis of anemia Discharge Medications: [place]-3 fatty acids: 1000 mg p.o. twice daily Vitamin D 2000 IU p.o. daily Lipitor 10 mg p.o. nightly Sucralfate 1 g p.o. 4 times daily Protonix 40 mg p.o. twice daily END OF DOCTOR EMAMIS DISCHARGE SUMMARY
--- NOTE | 2021-01-14 16:05 | PN ---
DATE OF SERVICE: 01/13/2021 The patient has been afebrile with stable vital signs. No signs of any significant major bleeding. Hemoglobin had dropped somewhat, but he has not had any further black or bloody stools. We will begin a full-liquid diet today. I think we will add some Carafate to the Protonix. Otherwise, management will be continued per the hospitalist. Hebert Persaud MD /[id number]
--- NOTE | 2021-02-01 15:18 | OR ---
DATE OF PROCEDURE: 01/12/2021 SURGEON: Hebert Persaud MD PREOPERATIVE DIAGNOSIS: Probable upper gastrointestinal bleeding. POSTOPERATIVE DIAGNOSIS: Upper gastrointestinal bleeding with large duodenal ulcer covered with soft clot. OPERATIVE PROCEDURE: Esophagogastroduodenoscopy with biopsies of antrum for CLOtest. ANESTHESIA: IV sedation. INDICATIONS FOR PROCEDURE: This is a 70-year-old admitted with a picture of upper GI bleed. Plan is to proceed with upper GI endoscopy with biopsies as indicated. Potential risks including bleeding and perforation were discussed, and the patient wishes to proceed. DETAILS OF PROCEDURE: The patient was taken to the operating room and placed in a left lateral decubitus position. IV sedation was administered, after which the upper GI endoscope was passed orally through the length of the esophagus into the stomach with retroflexion view of the fundus and thereafter through the pyloric channel into the proximal duodenum. Findings included normal hypopharynx, larynx, upper esophageal sphincter, and esophageal body. At the EG junction, there was no significant hiatal hernia or inflammation. Within the stomach, there was no blood or bleeding seen. There was some mild patchy redness in the antrum. Otherwise, as one passed into the duodenum, the patient was noted to have a quite large duodenal ulcer covered with soft clot. This clot was quite tenuous in terms of being almost like a partially set up Jell-O in terms of flimsiness of the clot and the scope was then carefully manipulated past it with no additional pathology being seen and the scope was then brought back into the antrum. Biopsy was obtained for CLOtest. Minimal bleeding from the biopsy site was seen and the procedure then concluded. The patient was taken to the recovery room in satisfactory condition. Hebert Persaud MD /[id number]
== END 2021-01-14 15:46 | disposition home or self-care (01) | DRG 379 ==
LOC: JP.ED 17:23 → JP.ICU 19:26
PROVIDERS: ADMIT Hospitalist; ATTEND Hospitalist
PROC: 0DB78ZX Excision of Stomach, Pylorus, Via Natural or Artificial Opening Endoscopic, Diagnostic (ICD-10-PCS; principal; 2021-01-12)
DX: K26.4 Chronic or unspecified duodenal ulcer with hemorrhage (principal); E78.5 Hyperlipidemia, unspecified; Z79.899 Other long term (current) drug therapy; H54.7 Unspecified visual loss; E78.00 Pure hypercholesterolemia, unspecified; Z90.89 Acquired absence of other organs; H35.30 Unspecified macular degeneration; Z20.822 Contact with and (suspected) exposure to COVID-19; K21.9 Gastro-esophageal reflux disease without esophagitis; F32.9 Major depressive disorder, single episode, unspecified; D64.9 Anemia, unspecified
CPT/HCPCS: 0241U; 36415; 80048; 80053; 82272; 82728; 82941; 83550; 85018; 85025; 85610; 85730; 86850; 86900; 86901; 87081; 93005; 96365; 99222; 99232; 99285; A9270-GY; C9113; J2704; J3010; J7121

== ENCOUNTER 2022-04-27 17:47 | Emergency (ER) | payer MEDICARE ==
[2022-04-27] MEDS ORDERED: Proparacaine 0.5% Ophth Soln 15 ML Bottle EYERT ONE (18:10)
[2022-04-27 18:18] VITALS: BP 147/84; PULSE 67
== END 2022-04-27 19:01 | disposition home or self-care (01) ==
LOC: JP.ED 17:47
DX: S05.01XA Injury of conjunctiva and corneal abrasion without foreign body, right eye, initial encounter (principal); Z79.899 Other long term (current) drug therapy; W25.XXXA Contact with sharp glass, initial encounter
CPT/HCPCS: 99283; A9270